=== PATIENT | female | born 1950 | race Caucasian/White ===

== ENCOUNTER 2018-07-16 12:43 | Emergency (ER) | payer OTHER ==
--- OUTSIDE RECORDS SUMMARY | 2018-07-16 12:45 | XMS REPORT | Clinical Summary ---
:1950 Author Organization [facility] Address [address] [place] [address] Care Team Providers Name Role Phone Jerson Blevins MD Primary Care Provider Allergies Active Allergy Reactions Severity Noted Date Comments Codeine Hives 02/07/2017 Penicillins Hives 02/07/2017 Sulfa (Sulfonamide Antibiotics) Hives 02/07/2017 Medications Medication Sig Dispensed Refills Start Date End Date Status mv [id number] fum-iron Take 1 capsule by 0 Active ps-FA (SE-COTTO PLUS) mouth daily. 162-115.2-1 mg capsule levothyroxine Take 50 mcg by 0 Active (SYNTHROID, LEVOXYL) 50 mouth every mcg tablet morning. metoprolol tartrate Take 12.5 mg by 0 Active (LOPRESSOR) 25 mg mouth 2 (two) tablet times a day. Active Problems Problem Noted Date Candidal skin infection 02/10/2017 Morbid obesity 02/10/2017 Iron deficiency anemia 02/10/2017 Cellulitis 02/08/2017 Lymphadenopathy 02/07/2017 Encounters Date Type Specialty Care Team Description 05/15/2018 Intake Access N/A after 07/15/2017 Immunizations Name Dates Previously Given Next Due FLUCELVAX QUAD PF (0.5mL syringe) 02/14/2017 Social History Tobacco Use Types Packs/Day Years Used Date Never Smoker Alcohol Use Drinks/Week oz/Week Comments No Sex Assigned at Date Recorded Not on file Job Start Date Occupation Industry Not on file Not on file Not on file Travel History Travel Start Travel End No recent travel history available. Last Filed Vital Signs Not on file Plan of Treatment Health Maintenance Due Date Last Done Comments BREAST CANCER SCREENING 02/11/1998 COLON CANCER SCREENING 02/11/1998 SHINGLES VACCINES (#1) 02/11/1998 65+ PNEUMOCOCCAL VACCINE (1 of 2 - PCV13) 02/11/2013 PNEUMOCOCCAL POLYSACCHARIDE VACCINE AGE 65 AND OVER 02/11/2013 INFLUENZA VACCINE 11/16/2017 02/14/2017 Results Not on fileafter 07/15/2017 Insurance Payer Benefit Plan / Group Subscriber ID Type Phone Address MEDICARE MEDICARE PART A AND B xxxxxxxxxx Medicare [place], [place] [employer] xxxxxxxx Commercial Advance Directives Patient has advance care planning documents, and code status on file. For more information, please contact:Raman Nixon[address] [place] [id number] Code Status Date Activated Date Inactivated Comments Full Code 02/07/2017 7:14 PM 02/14/2017 7:03 PM Code Status decision reached by: Patient
--- OUTSIDE RECORDS SUMMARY | 2018-07-16 12:45 | XMS REPORT ---
:1950 Author Organization [facility] Address [address] [place] [address] Dr. Lay. [address] [place] [id number] Care Team Providers Name Role Phone Unavailable Unavailable Unavailable Problems This patient has no known problems. Allergies, Adverse Reactions, Alerts This patient has no known allergies or adverse reactions. Medications This patient has no known medications.
[2018-07-16 13:33] LABS: Absolute Monocytes 0.9 K/uL (0.1-1.3); Absolute Neutrophil 5.8 K/uL (1.8-8.0); Basophils % 0.8 % (0-1.3); Eosinophils % 2.7 % (0-4.4); MPV 8.8 fL (7.6-11.3); Monocytes % 10.8 % (3.3-12.3); RBC Red Blood Cell Count 3.73 M/uL (3.86-4.86)
[2018-07-16 13:47] LABS: Albumin 3.5 g/dL (3.4-5.0); Bilirubin Direct 0.3 mg/dL (0-0.2); Potassium 3.9 mmol/L (3.5-5.1); Protein, Total 7.6 g/dL (6.4-8.2)
[2018-07-16 13:49] LABS: Platelet Estimate ADEQ; Urine White Blood Cell Casts OK
[2018-07-16 13:50] LABS: Anisocytosis 1+; Blood Morphology Comment NOTED (NOT SEEN)
--- NOTE | 2018-07-16 15:00 | RAD REPORT ---
EXAM DESCRIPTION: CT - Abdomen Pelvis W Contrast - 07/16/2018 2:16 pm CLINICAL HISTORY: Right-sided abdominal pain COMPARISON: None. TECHNIQUE: Biphasic, helical CT imaging of the abdomen and pelvis was performed following 100 ml non -ionic IV contrast. No oral contrast. All CT scans are performed using dose optimization technique as appropriate and may include automated exposure control or mA/KV adjustment according to patient size. FINDINGS: No suspicious findings in the lung bases. Cardiomegaly is present without pericardial effu kevon. Valve and Coronary artery calcifications present. The liver, spleen, and pancreas show no acute findings. Gallbladder and biliary tree are also without suspicious finding. Symmetric renal function is seen with no hydronephrosis or suspicious renal mass. No pyelonephritis o r acute parenchymal process. No bladder abnormalities. No adrenal abnormalities. Patient has normal v ariant retroaortic left renal vein. No gastric dilatation or wall thickening. No dilated large or small bowel. Moderate stool volume thro ughout the colon. No acute GI process identifiable. No free air, free fluid or inflammatory strandin g. Periumbilical abdominal wall laxity is present. A specific hernia defect is not confirmed. No ome ntal thickening. Small nonspecific periaortic lymph nodes are present. Bilateral iliac chain lymph nodes are present l argest lymph node 3.0 x 1.7 cm. No abnormal inguinal lymphadenopathy. Uterus and ovaries show no susp icious findings. Disc and bony degenerative changes are present. No acute bone finding. Spinal stenosis is evident at L4-5 Mild congestion or edema changes are seen scattered in the subcutaneous fatty tissues. IMPRESSION: No obstruction, free air or surgically emergent finding. Mild congestion and edema in the subcutaneous fatty tissues. Nonspecific bilateral iliac chain lymph nodes largest at 3.0 x 1.7 cm. No bulky lymphadenopathy elsew here. No comparison imaging available. Lymph nodes can be monitored with follow-up imaging in 3-4 mon ths. .
[2018-07-16] MEDS ORDERED: NA CHLORIDE 0.9% 1,000 ML ONE (15:41)
--- NOTE | 2018-07-16 16:54 | EDPHYS ---
Physician Documentation [facility] Name: Josie Sandoval Age: 68 yrs Sex: Female : 1950 Arrival Date: 07/16/2018 Time: 12:44 Bed 8 Private MD: ED Physician Filippo Carroll HPI: 07/16 13:36 This 68 yrs old Unknown Female presents to ER via Wheelchair with complaints of kb Abdominal Pain. 13:36 The patient presents with abdominal pain in the right upper quadrant, right lower kb quadrant. Onset: The symptoms/episode began/occurred 3 day(s) ago. The symptoms do not radiate. Associated signs and symptoms: none. The symptoms are described as waxing/waning. Modifying factors: The symptoms are alleviated by remaining still, the symptoms are aggravated by movement. Severity of pain: At its worst the pain was moderate in the emergency department the pain has improved. The patient has not experienced similar symptoms in the past. The patient has not recently seen a physician. Historical: - Allergies: 12:51 PENICILLINS; la1 12:51 Sulfa (Sulfonamide Antibiotics); la1 12:51 Codeine; la1 - PMHx: 12:51 Hypertension; Hypothyroidism; CHF; la1 - PSHx: 12:51 Hernia repair; Appendectomy; la1 - Immunization history:: Adult Immunizations up to date. - Social history:: Smoking status: Patient/guardian denies using tobacco. - Ebola Screening: : No symptoms or risks identified at this time. ROS: 13:32 Constitutional: Negative for fever, chills, and weight loss, Cardiovascular: Negative kb for chest pain, palpitations, and edema, Respiratory: Negative for shortness of breath, cough, wheezing, and pleuritic chest pain, Back: Negative for injury and pain, : Negative for injury, bleeding, discharge, and swelling, MS/Extremity: Negative for injury and deformity, Skin: Negative for injury, rash, and discoloration, Neuro: Negative for headache, weakness, numbness, tingling, and seizure. 13:32 Abdomen/GI: Positive for abdominal pain, Negative for nausea, vomiting, and diarrhea, constipation. Exam: 13:32 Constitutional: This is a well developed, well nourished patient who is awake, alert, kb and in no acute distress. Head/Face: Normocephalic, atraumatic. Chest/axilla: Normal chest wall appearance and motion. Nontender with no deformity. No lesions are appreciated. Cardiovascular: Regular rate and rhythm with a normal S1 and S2. No gallops, murmurs, or rubs. Normal PMI, no JVD. No pulse deficits. Respiratory: Lungs have equal breath sounds bilaterally, clear to auscultation and percussion. No rales, rhonchi or wheezes noted. No increased work of breathing, no retractions or nasal flaring. Back: No spinal tenderness. No costovertebral tenderness. Full range of motion. Skin: Warm, dry with normal turgor. Normal color with no rashes, no lesions, and no evidence of cellulitis. MS/ Extremity: Pulses equal, no cyanosis. Neurovascular intact. Full, normal range of motion. Neuro: Awake and alert, GCS 15, oriented to person, place, time, and situation. Cranial nerves II-XII grossly intact. Motor strength 5/5 in all extremities. Sensory grossly intact. Cerebellar exam normal. Normal gait. 13:32 Abdomen/GI: Inspection: abdomen appears normal, Bowel sounds: normal, in all quadrants, Palpation: soft, in all quadrants, moderate abdominal tenderness, in the right upper quadrant and right lower quadrant. Vital Signs: 12:51 BP 117 / 66; Pulse 85; Resp 16; Temp 97.1; Pulse Ox 99% on R/A; Weight 129.27 kg; la1 Height 5 ft. 5 in. (165.10 cm); Pain 6/10; 13:35 BP 116 / 55; Pulse 95; Resp 18; Pulse Ox 97% on R/A; hj 14:27 BP 123 / 70; Pulse 90; Resp 18; Pulse Ox 98% on R/A; hj 15:38 BP 107 / 83; Pulse 87; Resp 18; Pulse Ox 96% on R/A; hj 12:51 Body Mass Index 47.43 (129.27 kg, 165.10 cm) la1 MDM: 12:56 Patient medically screened. kb 13:36 Data reviewed: vital signs, nurses notes. Data interpreted: Pulse oximetry: on room air kb is 97 %. Interpretation: normal. 16:53 Counseling: I had a detailed discussion with the patient and/or guardian regarding: the kb historical points, exam findings, and any diagnostic results supporting the discharge/admit diagnosis, lab results, radiology results, the need for outpatient follow up, a family practitioner, to return to the emergency department if symptoms worsen or persist or if there are any questions or concerns that arise at home. 07/16 13:09 Order name: Basic Metabolic Panel kb 07/16 13:09 Order name: CBC with Diff kb 07/16 13:09 Order name: Hepatic Function kb 07/16 13:09 Order name: Lipase kb 07/16 13:09 Order name: Basic Metabolic Panel; Complete Time: 13:48 EDMS 07/16 13:09 Order name: CBC with Automated Diff; Complete Time: 13:52 EDMS 07/16 13:09 Order name: IV Saline Lock; Complete Time: 13:10 kb 07/16 13:09 Order name: Labs collected and sent; Complete Time: 13:10 kb 07/16 13:09 Order name: CT Abd/Pelvis - W/Contrast; Complete Time: 15:07 kb 07/16 13:09 Order name: Liver (Hepatic) Function; Complete Time: 13:48 EDMS 07/16 13:09 Order name: Lipase; Complete Time: 13:48 EDMS 07/16 13:49 Order name: CBC Smear Scan; Complete Time: 13:52 EDMS 07/16 15:22 Order name: US Abdomen Limited; Complete Time: 17:05 kb Administered Medications: 15:28 Drug: NS 0.9% 1000 ml Route: IV; Rate: 1000 ml; Site: left antecubital; hj 17:06 Follow up: IV Status: Completed infusion hj Disposition: 18:48 Co-signature as Attending Physician, Filippo Carroll MD. rn Disposition: 07/16/18 16:54 Discharged to Home. Impression: Generalized abdominal pain. - Condition is Stable. - Discharge Instructions: Abdominal Pain, Adult, [id number]. - Prescriptions for Cyclobenzaprine 10 mg Oral Tablet - take 1 tablet by ORAL route every 8 hours As needed; 21 tablet. Diclofenac Sodium 75 mg Oral Tablet, Delayed Release (E.C.) - take 1 tablet by ORAL route 2 times per day As needed; 30 tablet. - Medication Reconciliation Form, Thank You Letter, Antibiotic Education, Prescription Opioid Use form. - Follow up: Emergency Department; When: As needed; Reason: Worsening of condition. Follow up: Private Physician; When: 2 - 3 days; Reason: Recheck today's complaints, Continuance of care, Re-evaluation by your physician. Signatures: Dispatcher [employer] EDMary Lau, SURGICAL TECHNOLOGIST-C SURGICAL TECHNOLOGIST-Deborah Mckenna, RN RN iw Filippo Carroll MD MD rn Attema, Lee, RN RN la1 Jerry Madison RN RN hj Corrections: (The following items were deleted from the chart) 17:02 16:54 07/16/2018 16:54 Discharged to Home. Impression: Generalized abdominal pain. iw Condition is Stable. Forms are Medication Reconciliation Form, Thank You Letter, Antibiotic Education, Prescription Opioid Use. Follow up: Emergency Department; When: As needed; Reason: Worsening of condition. Follow up: Private Physician; When: 2 - 3 days; Reason: Recheck today's complaints, Continuance of care, Re-evaluation by your physician. kb 17:07 17:02 07/16/2018 16:54 Discharged to Home. Impression: Generalized abdominal pain. hj Condition is Stable. Discharge Instructions: Abdominal Pain, Adult, [id number]. Prescriptions for Cyclobenzaprine 10 mg Oral Tablet - take 1 tablet by ORAL route every 8 hours As needed; 21 tablet, Diclofenac Sodium 75 mg Oral Tablet, Delayed Release (E.C.) - take 1 tablet by ORAL route 2 times per day As needed; 30 tablet. and Forms are Medication Reconciliation Form, Thank You Letter, Antibiotic Education, Prescription Opioid Use. Follow up: Emergency Department; When: As needed; Reason: Worsening of condition. Follow up: Private Physician; When: 2 - 3 days; Reason: Recheck today's complaints, Continuance of care, Re-evaluation by your physician. iw
--- NOTE | 2018-07-16 16:54 | ER ---
Nurse's Notes [facility] Name: Josie Sandoval Age: 68 yrs Sex: Female : 1950 Arrival Date: 07/16/2018 Time: 12:44 Bed 8 Private MD: Diagnosis: Generalized abdominal pain Presentation: 07/16 12:50 Presenting complaint: Patient states: right sided abd pain for the last 2-3 days, la1 denies N/V/D, no fevers or visible blood in stool. Transition of care: patient was not received from another setting of care. Onset of symptoms was July 16, 2018. Risk Assessment: Do you want to hurt yourself or someone else? Patient reports no desire to harm self or others. Initial Sepsis Screen: Does the patient meet any 2 criteria? No. Patient's initial sepsis screen is negative. Does the patient have a suspected source of infection? No. Patient's initial sepsis screen is negative. Care prior to arrival: None. 12:50 Method Of Arrival: Wheelchair la1 12:50 Acuity: MIK 3 la1 Triage Assessment: 12:55 General: Appears in no apparent distress. uncomfortable, Behavior is calm, cooperative, hj appropriate for age. Pain: Complains of pain in abdomen. GI: Reports lower abdominal pain, upper abdominal pain. Historical: - Allergies: 12:51 PENICILLINS; la1 12:51 Sulfa (Sulfonamide Antibiotics); la1 12:51 Codeine; la1 - PMHx: 12:51 Hypertension; Hypothyroidism; CHF; la1 - PSHx: 12:51 Hernia repair; Appendectomy; la1 - Immunization history:: Adult Immunizations up to date. - Social history:: Smoking status: Patient/guardian denies using tobacco. - Ebola Screening: : No symptoms or risks identified at this time. Screenin:55 Abuse screen: Denies threats or abuse. Denies injuries from another. Nutritional hj screening: No deficits noted. Tuberculosis screening: No symptoms or risk factors identified. Fall Risk Fall in past 12 months (25 points). Assessment: 12:56 GI: Bowel sounds present X 4 quads. Abd is soft. hj 12:56 General: Appears in no apparent distress. uncomfortable, obese, Behavior is calm, hj cooperative, appropriate for age. Pain: Complains of pain in abdomen. Neuro: Level of Consciousness is awake, alert, obeys commands, Oriented to person, place, time, situation, Appropriate for age. Cardiovascular: Capillary refill < 3 seconds Patient's skin is warm and dry. Respiratory: Airway is patent Respiratory effort is even, unlabored, Respiratory pattern is regular, symmetrical. : No signs and/or symptoms were reported regarding the genitourinary system. EENT: No signs and/or symptoms were reported regarding the EENT system. Derm: No signs and/or symptoms reported regarding the dermatologic system. Musculoskeletal: No signs and/or symptoms reported regarding the musculoskeletal system. 14:00 Reassessment: Patient and/or family updated on plan of care and expected duration. Pain hj level reassessed. Patient is alert, oriented x 3, equal unlabored respirations, skin warm/dry/pink. wheeled to CT;. 14:27 Reassessment: Patient and/or family updated on plan of care and expected duration. Pain hj level reassessed. Patient is alert, oriented x 3, equal unlabored respirations, skin warm/dry/pink. back from CT;. 15:38 Reassessment: Patient and/or family updated on plan of care and expected duration. Pain hj level reassessed. Patient is alert, oriented x 3, equal unlabored respirations, skin warm/dry/pink. awaiting US of abd;. 16:00 Reassessment: US abdomen ongoing;. hj Vital Signs: 12:51 BP 117 / 66; Pulse 85; Resp 16; Temp 97.1; Pulse Ox 99% on R/A; Weight 129.27 kg; la1 Height 5 ft. 5 in. (165.10 cm); Pain 6/10; 13:35 BP 116 / 55; Pulse 95; Resp 18; Pulse Ox 97% on R/A; hj 14:27 BP 123 / 70; Pulse 90; Resp 18; Pulse Ox 98% on R/A; hj 15:38 BP 107 / 83; Pulse 87; Resp 18; Pulse Ox 96% on R/A; hj 12:51 Body Mass Index 47.43 (129.27 kg, 165.10 cm) la1 ED Course: 12:44 Patient arrived in ED. mr 12:50 Triage completed. la1 12:52 Arm band placed on left wrist. la1 12:54 Jerry Madison, RN is Primary Nurse. hj 12:56 Mary Rodas FNP-C [facility]. kb 12:56 Filippo Carroll MD is Attending Physician. kb 12:56 Patient has correct armband on for positive identification. Placed in gown. Bed in low hj position. Call light in reach. Side rails up X 1. Adult w/ patient. 13:10 Initial lab(s) drawn, by me, sent to lab. Inserted saline lock: 22 gauge in right hj antecubital area, using aseptic technique. Blood collected. 13:23 Radiology exam delayed due to lab results not completed at this time. (BUN/Creatinine). mw3 14:16 CT Abd/Pelvis - W/Contrast In Process Unspecified. EDMS 16:32 Ultrasound completed. Other: diff exam,pt unable to move/hold breath. sg3 16:36 US Abdomen Limited In Process Unspecified. EDMS 17:03 No provider procedures requiring assistance completed. IV discontinued, intact, hj bleeding controlled, No redness/swelling at site. Pressure dressing applied. 17:04 Primary Nurse role handed off by Jerry Madison RN iw 17:06 Jerry Madison, RN is Primary Nurse. hj Administered Medications: 15:28 Drug: NS 0.9% 1000 ml Route: IV; Rate: 1000 ml; Site: left antecubital; hj 17:06 Follow up: IV Status: Completed infusion hj Outcome: 16:54 Discharge ordered by . kb 17:02 Patient left the ED. iw 17:03 Discharged to home ambulatory, with family. hj 17:03 Condition: stable 17:03 Discharge instructions given to patient, family, Instructed on discharge instructions, follow up and referral plans. medication usage, Demonstrated understanding of instructions, follow-up care, medications, Prescriptions given X 2. 17:07 Patient left the ED. hj Signatures: Dispatcher [employer] EDMS Mary Rodas FNP-C FNP-Josie Kan Irene, RN RN Rd Jansen RN RN la1 Jerry Madison RN RN hj Godinez, Sarah sg3 Ivette Farooq mw3
--- NOTE | 2018-07-16 17:00 | RAD REPORT ---
EXAM DESCRIPTION: US - Abdomen Exam Limited - 07/16/2018 4:35 pm CLINICAL HISTORY: Abdominal pain Exam limited due to body habitus and limited patient ability to breath hold COMPARISON: None. FINDINGS: No gallstones, sludge or other abnormalities within the gallbladder lumen. There is no wal l thickening or pericholecystic fluid. No common duct stone or biliary tree dilatation identified. IMPRESSION: Normal gallbladder and biliary tree ultrasound.
== END 2018-07-16 17:07 | disposition home or self-care (01) ==
LOC: ER 12:43
DX: R10.11 Right upper quadrant pain (principal); I10 Essential (primary) hypertension; E03.9 Hypothyroidism, unspecified; I50.9 Heart failure, unspecified; Z88.5 Allergy status to narcotic agent; Z88.0 Allergy status to penicillin; Z88.2 Allergy status to sulfonamides
CPT/HCPCS: 96361; 85025; 80048; 36415; 80076; 83690; 74177; 76705; 96360; 99284; Q9967; J7030

== ENCOUNTER 2018-11-28 23:39 | Emergency (ER) | payer OTHER ==
--- OUTSIDE RECORDS SUMMARY | 2018-11-28 23:41 | XMS REPORT ---
:1950 Author Organization [facility] Address [address] [place] [address] Dr. Lay. [address] [place] [id number] Care Team Providers Name Role Phone Unavailable Unavailable Unavailable Problems This patient has no known problems. Allergies, Adverse Reactions, Alerts This patient has no known allergies or adverse reactions. Medications This patient has no known medications.
--- OUTSIDE RECORDS SUMMARY | 2018-11-28 23:41 | XMS REPORT | Clinical Summary ---
:1950 Author Organization [facility] Address [address] [place] [address] Care Team Providers Name Role Phone Jerson Blevins MD Primary Care Provider Allergies Active Allergy Reactions Severity Noted Date Comments Codeine Hives 02/07/2017 Penicillins Hives 02/07/2017 Sulfa (Sulfonamide Antibiotics) Hives 02/07/2017 Medications Medication Sig Dispensed Refills Start Date End Date Status mv [id number] fum-iron Take 1 capsule by 0 Active [...] Team Description 05/15/2018 Intake Access N/A after 11/27/2017 Immunizations Name Dates Previously Given Next Due [...] Last Done Comments BREAST CANCER SCREENING 02/11/1998 COLONOSCOPY SCREENING 02/11/1998 SHINGLES VACCINES (#1) 02/11/1998 65+ PNEUMOCOCCAL VACCINE (1 of 2 - PCV13) 02/11/2013 INFLUENZA VACCINE 11/16/2018 02/14/2017 Results Not on fileafter 11/27/2017 Insurance Payer Benefit Plan / Subscriber ID Effective Phone Address Type Group Dates MEDICARE MEDICARE PART xxxxxxxxxx 2013-Pres [place], [place] Medicare A AND B ent [employer] xxxxxxxx 2014-Pre[place] [employer] [place] Advance Directives Patient has advance care planning documents, and code status on file. For more information, please contact:Raman Nixon[address] [place] [id number] Code Status Date Activated Date Inactivated Comments Full Code 02/07/2017 7:14 PM 02/14/2017 7:03 PM Code Status decision reached by: Patient
--- NOTE | 2018-11-29 00:41 | ER ---
Nurse's Notes [facility] Name: Josie Sandoval Age: 68 yrs Sex: Female : 1950 Arrival Date: 11/28/2018 Time: 23:43 Bed 2 Private MD: Diagnosis: Dorsalgia;Postherpetic polyneuropathy Presentation: 11/28 23:58 Presenting complaint: Patient states: she had shingles about 3 months ago was treated bb and recovered but has nerve damage to that area causing her a lot of pain to the left side of her back. She is taking gabapentin, and using a lidocaine patch but the pain is getting worse it is greater than 10/10. Transition of care: patient was not received from another setting of care. Onset of symptoms was August 2018. Risk Assessment: Do you want to hurt yourself or someone else? Patient reports no desire to harm self or others. Initial Sepsis Screen: Does the patient meet any 2 criteria? No. Patient's initial sepsis screen is negative. Does the patient have a suspected source of infection? No. Patient's initial sepsis screen is negative. 23:58 Method Of Arrival: Wheelchair 23:58 Acuity: MIK 4 bb 11/29 01:00 Care prior to arrival: None. ao Historical: - Allergies: 00:02 Codeine; bb 00:02 PENICILLINS; bb 00:02 Sulfa (Sulfonamide Antibiotics); bb - Home Meds: 00:02 gabapentin oral oral [Active]; lidocaine patch [Active]; carvedilol oral oral [Active]; bb thyroid medication [Active]; Lasix Oral [Active]; - PMHx: 00:02 CHF; Hypertension; Hypothyroidism; bb - PSHx: 00:02 Hernia repair; Appendectomy; left shoulder; bb - Immunization history:: Adult Immunizations up to date. - Social history:: Smoking status: Patient/guardian denies using tobacco. - Ebola Screening: : No symptoms or risks identified at this time. Screenin:12 Abuse screen: Denies threats or abuse. Denies injuries from another. Nutritional rr5 screening: No deficits noted. Tuberculosis screening: No symptoms or risk factors identified. Fall Risk Ambulatory Aid- Crutches/Cane/Walker (15 pts). Gait- Normal/Bed Rest/Wheelchair (0 pts) Total Carlton Fall Scale indicates No Risk (0-24 pts). Assessment: 00:05 General: Appears in no apparent distress. uncomfortable, Behavior is calm, cooperative, rr5 appropriate for age. Pain: Complains of pain in back Pain does not radiate. Pain currently is 10 out of 10 on a pain scale. Quality of pain is described as aching, Pain began gradually, Is intermittent. Neuro: Level of Consciousness is awake, alert, obeys commands, Oriented to person, place, time, situation, Appropriate for age. Cardiovascular: Capillary refill < 3 seconds Patient's skin is warm and dry. Respiratory: Airway is patent Respiratory effort is even, unlabored, Respiratory pattern is regular, symmetrical. GI: No signs and/or symptoms were reported involving the gastrointestinal system. : No signs and/or symptoms were reported regarding the genitourinary system. EENT: No signs and/or symptoms were reported regarding the EENT system. Derm: Skin is intact, Skin is pink, warm \T\ dry. Skin temperature is warm Reports pain that is 10 out of 10 on a pain scale. pain from the site of shingle infection at the back 3 months ago. Musculoskeletal: Circulation, motion, and sensation intact. Capillary refill < 3 seconds. 01:00 Reassessment: DC instructions given to patient and caregiver. patient agree with the ao POC and to follow up with PCP. Vital Signs: 00:02 BP 120 / 77; Pulse 107; Resp 18 S; Temp 97.4(TE); Pulse Ox 94% on R/A; Weight 135.62 kg bb (R); Height 5 ft. 5 in. (165.10 cm) (R); Pain 10/10; 00:02 Body Mass Index 49.76 (135.62 kg, 165.10 cm) bb ED Course: 11/28 23:43 Patient arrived in ED. ds1 11/29 00:00 Triage completed. bb 00:00 Filiberto Mustafa MD is Attending Physician. gs 00:02 Arm band placed on Patient placed on pulse oximetry. bb 00:12 Sin Allen RN is Primary Nurse. rr5 00:37 Sami Wilkes DO is Referral Physician. gs 01:00 No provider procedures requiring assistance completed. Patient did not have IV access ao during this emergency room visit. 01:01 Patient has correct armband on for positive identification. Pulse ox on. NIBP on. ao Administered Medications: 00:49 Drug: traMADol 50 mg {Note: Rass 0.} Route: PO; ao 01:01 Follow up: Response: No adverse reaction ao Outcome: 00:38 Discharge ordered by . ashutosh 01:01 Discharged to home via wheelchair. ao 01:01 Condition: stable 01:01 Discharge instructions given to patient, Instructed on discharge instructions, follow up and referral plans. Demonstrated understanding of instructions, follow-up care, medications, Prescriptions given X 1. 01:01 Patient left the ED. ao Signatures: Makenna Mcdermott ds1 Meredith Hubbard RN RN bb Brooks Gardner RN RN Filiberto Donnelly MD MD gs Roque, Raymond RN RN rr5
--- NOTE | 2018-11-29 00:42 | EDPHYS ---
Physician Documentation [facility] Name: Josie Sandoval Age: 68 yrs Sex: Female : 1950 Arrival Date: 11/28/2018 Time: 23:43 Bed 2 Private MD: ED Physician Filiberto Mustafa HPI: 11/29 00:45 This 68 yrs old Female presents to ER via Wheelchair with complaints of Back gs Pain. 00:45 The patient presents with pain that is chronic. The symptoms are located in the. gs 00:49 Onset: The symptoms/episode began/occurred gradually, 5 week(s) ago. The pain does not gs radiate. Associated signs and symptoms: Pertinent negatives: chest pain, dysuria, fever. The problem was sustained post herpetic neuralgia. Modifying factors: The patient symptoms are alleviated by nothing, the patient symptoms are aggravated by movement. Severity of symptoms: At their worst the symptoms were moderate, in the emergency department the symptoms are unchanged. The patient has experienced similar episodes in the past, a few times. The patient has been recently seen by a physician: the patient's primary care provider, with similar presenting complaints, has been on gabapentin and lidocaine patches with variable relief. . Historical: - Allergies: 00:02 Codeine; bb 00:02 PENICILLINS; bb 00:02 Sulfa (Sulfonamide Antibiotics); bb - Home Meds: 00:02 gabapentin oral oral [Active]; lidocaine patch [Active]; carvedilol oral oral [Active]; bb thyroid medication [Active]; Lasix Oral [Active]; - PMHx: 00:02 CHF; Hypertension; Hypothyroidism; bb - PSHx: 00:02 Hernia repair; Appendectomy; left shoulder; bb - Immunization history:: Adult Immunizations up to date. - Social history:: Smoking status: Patient/guardian denies using tobacco. - Ebola Screening: : No symptoms or risks identified at this time. ROS: 00:49 All other systems are negative. gs Exam: 00:49 Head/Face: Normocephalic, atraumatic. Eyes: Pupils equal round and reactive to light, gs extra-ocular motions intact. Lids and lashes normal. Conjunctiva and sclera are non-icteric and not injected. Cornea within normal limits. Periorbital areas with no swelling, redness, or edema. ENT: Nares patent. No nasal discharge, no septal abnormalities noted. Tympanic membranes are normal and external auditory canals are clear. Oropharynx with no redness, swelling, or masses, exudates, or evidence of obstruction, uvula midline. Mucous membranes moist. Neck: Trachea midline, no thyromegaly or masses palpated, and no cervical lymphadenopathy. Supple, full range of motion without nuchal rigidity, or vertebral point tenderness. No Meningismus. Cardiovascular: Regular rate and rhythm with a normal S1 and S2. No gallops, murmurs, or rubs. Normal PMI, no JVD. No pulse deficits. Respiratory: Lungs have equal breath sounds bilaterally, clear to auscultation and percussion. No rales, rhonchi or wheezes noted. No increased work of breathing, no retractions or nasal flaring. Abdomen/GI: Soft, non-tender, with normal bowel sounds. No distension or tympany. No guarding or rebound. No evidence of tenderness throughout. Back: No spinal tenderness. No costovertebral tenderness. Full range of motion. Skin: Warm, dry with normal turgor. Normal color with no rashes, no lesions, and no evidence of cellulitis. MS/ Extremity: Pulses equal, no cyanosis. Neurovascular intact. Full, normal range of motion. Neuro: Awake and alert, GCS 15, oriented to person, place, time, and situation. Cranial nerves II-XII grossly intact. Motor strength 5/5 in all extremities. Sensory grossly intact. Cerebellar exam normal. Normal gait. 00:49 Constitutional: The patient appears alert, awake. 00:49 Chest/axilla: Palpation: tenderness, that is mild, of the left lateral posterior chest. 00:49 Back: pain, that is mild, of the left scapular area, pt appears comfortable in no distress, i recommended that she see pain management for evolving chronic pain.. Vital Signs: 00:02 BP 120 / 77; Pulse 107; Resp 18 S; Temp 97.4(TE); Pulse Ox 94% on R/A; Weight 135.62 kg bb (R); Height 5 ft. 5 in. (165.10 cm) (R); Pain 10; 00:02 Body Mass Index 49.76 (135.62 kg, 165.10 cm) bb MDM: 00:31 Patient medically screened. gs 00:49 Differential diagnosis: chronic back pain, sprain, post herpetic neuralgia. Data reviewed: vital signs, nurses notes. Administered Medications: 00:49 Drug: traMADol 50 mg {Note: Rass 0.} Route: PO; ao 01:01 Follow up: Response: No adverse reaction ao Disposition: 11/29/18 00:38 Discharged to Home. Impression: Dorsalgia, Postherpetic polyneuropathy. - Condition is Stable. - Discharge Instructions: Back Pain, Adult. - Prescriptions for Prednisone 20 mg Oral Tablet - take 1 tablet by ORAL route once daily for 5 days; 5 tablet. Tramadol 50 mg Oral Tablet - take 1 tablet by ORAL route every 8 hours as needed; 12 tablet. - Medication Reconciliation Form, Thank You Letter, Antibiotic Education, Prescription Opioid Use form. - Follow up: Sami Wilkes DO; When: 2 - 3 days; Reason: Re-evaluation by your physician. Signatures: Meredith Hubbard RN RN bb Ortiz, Alex, RN RN ao Starr, Gregory, MD MD Corrections: (The following items were deleted from the chart) 01:01 00:38 11/29/2018 00:38 Discharged to Home. Impression: Dorsalgia; Postherpetic ao polyneuropathy. Condition is Stable. Forms are Medication Reconciliation Form, Thank You Letter, Antibiotic Education, Prescription Opioid Use. Follow up: Sami Wilkes; When: 2 - 3 days; Reason: Re-evaluation by your physician.
[2018-11-29] MEDS ORDERED: TRAMADOL HCL 50 MG TAB ONE (00:44)
== END 2018-11-29 01:01 | disposition home or self-care (01) ==
LOC: ER 23:39
DX: B02.23 Postherpetic polyneuropathy (principal); I10 Essential (primary) hypertension; I50.9 Heart failure, unspecified; E03.9 Hypothyroidism, unspecified; Z88.0 Allergy status to penicillin; Z88.2 Allergy status to sulfonamides; Z88.5 Allergy status to narcotic agent
CPT/HCPCS: 99283

== ENCOUNTER 2019-03-23 11:21 | Emergency (ER) | payer OTHER ==
--- OUTSIDE RECORDS SUMMARY | 2019-03-23 11:28 | XMS REPORT ---
:1950 [facility] [address] [place] [id number] Care Team Providers Name Role Phone Unavailable Unavailable Unavailable Problems This patient has no known problems. Allergies, Adverse Reactions, Alerts This patient has no known allergies or adverse reactions. Medications This patient has no known medications.
[2019-03-23 12:22] LABS: Absolute Lymphocytes (CBC) 0.6 K/uL (0.7-4.9); Basophils % 0.7 % (0-1.3); Hematocrit 35.7 % (36.0-45.0); Lymphocytes % 8.3 % (15.3-44.8); RBC Red Blood Cell Count 4.23 M/uL (3.86-4.86)
[2019-03-23 12:32] LABS: Albumin 2.7 g/dL (3.4-5.0); Bilirubin Direct 0.2 mg/dL (0-0.2); Bilirubin Total 0.5 mg/dL (0.2-1.0); Potassium 4.1 mmol/L (3.5-5.1); Protein, Total 6.3 g/dL (6.4-8.2)
[2019-03-23] MEDS ORDERED: PHENAZOPYRIDINE 100MG TAB PO ONE (12:32)
[2019-03-23] MEDS ORDERED: ONDANSETRON 4 MG/2 ML VIAL ONE (12:32)
[2019-03-23 12:52] LABS: Urine Blood 2+ (NEG); Urine Glucose NEGATIVE (NEG); Urine Protein 1+ (NEG); Urine Specific Gravity 1.025 (1.005-1.030); Urine pH 5.5 (5.0-7.0)
--- NOTE | 2019-03-23 13:31 | RAD REPORT ---
EXAM DESCRIPTION: CTAbdomen Pelvis W Contrast - 03/23/2019 1:13 pm CLINICAL HISTORY: Abdominal pain. ABD PAIN COMPARISON: Abdomen Pelvis W Contrast dated 07/16/2018 TECHNIQUE: Biphasic CT imaging of the abdomen and pelvis was performed with 100 ml non-ionic IV cont rast. All CT scans are performed using dose optimization technique as appropriate and may include automated exposure control or mA/KV adjustment according to patient size. FINDINGS: Mild linear subsegmental atelectasis is present in the left lung base. Mild diffuse fatty liver is present. The spleen is normal in size. The pancreas, adrenal glands and k idneys are within normal limits. No bowel obstruction, free air, free fluid or abscess. Edema is present in the soft tissues suggestin g mild anasarca. The appendix is not identified as a discrete structure, however, no secondary findin gs of appendicitis are identified. No evidence of significant lymphadenopathy. Prominent degenerative changes are noted in the lumbar spine. IMPRESSION: No acute intra-abdominal or pelvic finding.
--- NOTE | 2019-03-23 15:07 | ER ---
Nurse's Notes [facility] Name: Josie Sandoval Age: 69 yrs Sex: Female : 1950 Arrival Date: 03/23/2019 Time: 11:27 Bed 6 Private MD: Diagnosis: Dysuria;Abdominal and pelvic pain Presentation: 03/23 11:28 Presenting complaint: EMS states: pt c/o trouble urinating for 3 days. Pt has just ca1 finish a course of antibiotics and has new antibiotics Levofloxacin which she started 2 days ago. Pt c/o nausea and bladder pain. Pt also has cellulitis on both lower extremities. Transition of care: patient was not received from another setting of care. Onset of symptoms was March 21, 2019. Risk Assessment: Do you want to hurt yourself or someone else? Patient reports no desire to harm self or others. Initial Sepsis Screen: Does the patient meet any 2 criteria? No. Patient's initial sepsis screen is negative. Does the patient have a suspected source of infection? No. Patient's initial sepsis screen is negative. Care prior to arrival: IV initiated. 20 GA, in the right antecubital area, Glucose check: 136. 11:28 Method Of Arrival: EMS: [facility] ca1 11:28 Acuity: MIK 3 ca1 Historical: - Allergies: 11:32 Codeine; ca1 11:32 PENICILLINS; ca1 11:32 Sulfa (Sulfonamide Antibiotics); ca1 - Home Meds: 11:32 THYROID MEDICATION [Active]; ca1 - PMHx: 11:32 CHF; Hypertension; Hypothyroidism; ca1 - PSHx: 11:32 Hernia repair; Appendectomy; ca1 - Immunization history:: Adult Immunizations up to date, Pneumococcal vaccine is not up to date, Flu vaccine is not up to date. - Social history:: Smoking status: Patient/guardian denies using tobacco. - Ebola Screening: : Patient negative for fever greater than or equal to 101.5 degrees Fahrenheit, and additional compatible Ebola Virus Disease symptoms Patient denies exposure to infectious person Patient denies travel to an Ebola-affected area in the 21 days before illness onset No symptoms or risks identified at this time. Screenin:30 Abuse screen: Denies threats or abuse. Nutritional screening: No deficits noted. aa5 Tuberculosis screening: No symptoms or risk factors identified. Fall Risk IV access (20 points). Ambulatory Aid- Crutches/Cane/Walker (15 pts). Total Carlton Fall Scale indicates Low Risk Score (25-44 pts). Fall prevention measures have been instituted. Side Rails Up X 2 Placed close to Nursing Station. Assessment: 11:30 General: Appears comfortable, unkempt, Behavior is calm, cooperative. Pain: Complains aa5 of pain in suprapubic area, pt states "bladder" Pain does not radiate. Pain currently is 4 out of 10 on a pain scale. Quality of pain is described as aching, Pt states "the pain is aching right now but every once in a while I'll get a sharp pain" Pain began 2-3 days ago. Is continuous. Neuro: Level of Consciousness is awake, alert, obeys commands, Oriented to person, place, time, situation. Cardiovascular: Patient's skin is warm and dry. Lymphedema noted to praveen lower extremities . Respiratory: Airway is patent Respiratory effort is even, unlabored, Respiratory pattern is regular, symmetrical. GI: Abdomen is obese, Bowel sounds present X 4 quads. Abd is soft and non tender X 4 quads. Reports nausea, vomiting, x 2-3 days ago. : Reports pain with urination, reports decreased urination x 2-3 days ago. EENT: No signs and/or symptoms were reported regarding the EENT system. Derm: Skin is pink, warm \\T\\ dry. Rash noted that is on right arm and left arm and praveen lower extremities. Pt states "I have cellulitis". 12:40 Reassessment: Patient is alert, oriented x 3, equal unlabored respirations, skin aa5 warm/dry/pink. 13:30 Reassessment: Patient is alert, oriented x 3, equal unlabored respirations, skin aa5 warm/dry/pink. Patient states feeling better. 14:30 Reassessment: Patient is alert, oriented x 3, equal unlabored respirations, skin aa5 warm/dry/pink. Awaiting disposition. 16:45 Reassessment: Patient is alert, oriented x 3, equal unlabored respirations, skin aa5 warm/dry/pink. Awaiting EMS for transfer home. . Vital Signs: 11:32 BP 152 / 109; Pulse 110; Resp 14 S; Temp 97.4(TE); Pulse Ox 100% on R/A; Weight 136.08 ca1 kg (R); Height 5 ft. 5 in. (165.10 cm) (R); Pain 7/10; 12:30 BP 148 / 90; Pulse 105; Resp 18 S; Pulse Ox 100% on R/A; aa5 14:00 BP 142 / 92; Pulse 100; Resp 18 S; Temp 97.8(TE); Pulse Ox 99% on R/A; aa5 16:45 BP 150 / 90; Pulse 99; Resp 16 S; Pulse Ox 100% on R/A; aa5 11:32 Body Mass Index 49.92 (136.08 kg, 165.10 cm) ca1 ED Course: 11:27 Patient arrived in ED. ca1 11:32 Triage completed. ca1 11:32 Arm band placed on right wrist. ca1 11:32 Patient has correct armband on for positive identification. Bed in low position. Call aa5 light in reach. Side rails up X2. 11:34 Wanda Castro, DIVYA is Primary Nurse. aa5 11:58 Leonidas Bocanegra MD is Attending Physician. kdr 12:39 Regan cath inserted, using sterile technique, 18 Fr., by ar, balloon inflated, to aa5 gravity drainage, urine specimen collected. returned 100cc. Patient tolerated poorly. 13:14 CT Abd/Pelvis - IV Contrast Only In Process Unspecified. EDMS 16:45 Regan cath removed intact, balloon deflated. aa5 16:45 No provider procedures requiring assistance completed. IV discontinued, intact, aa5 bleeding controlled, No redness/swelling at site. Pressure dressing applied. Administered Medications: 12:34 Drug: Zofran 4 mg Route: IVP; Site: right antecubital; aa5 12:40 Follow up: Response: No adverse reaction aa5 12:34 Drug: Pyridium 200 mg Route: PO; aa5 13:35 Follow up: Response: No adverse reaction aa5 Output: 16:45 Urine: 250ml (Regan); Total: 250ml. aa5 Outcome: 15:07 Discharge ordered by . kdr 17:05 Discharged to home via ambulance. aa5 17:05 Condition: stable 17:05 Discharge instructions given to patient, Instructed on discharge instructions, follow up and referral plans. medication usage, Demonstrated understanding of instructions, follow-up care, medications, Prescriptions given X 3. 17:07 Patient left the ED. aa5 Addendum: 03/27/2019 16:58 Addendum: Culture Results: Positive urine culture. Phone call Attempt #1 No answer, no h b voicemail. Signatures: Dispatcher [employer] EDLeonidas Hurst MD MD kdr Calderon, Audri RN RN aa5 Nika Rai RN RN Cindy Park RN RN ca1 Corrections: (The following items were deleted from the chart) 03/23 18:39 17:11 Patient left the ED. aa5 aa5
--- NOTE | 2019-03-23 15:08 | EDPHYS ---
Physician Documentation [facility] Name: Josie Sandoval Age: 69 yrs Sex: Female : 1950 Arrival Date: 03/23/2019 Time: 11:27 Bed 6 Private MD: ED Physician Leonidas Bocanegra HPI: 03/23 15:09 This 69 yrs old Female presents to ER via EMS with complaints of pain and kdr difficulty urinating. 15:09 The patient presents with urinary symptoms, dysuria, hesitancy, urinary retention. kdr Onset: The symptoms/episode began/occurred gradually, 3 day(s) ago. Modifying factors: The symptoms are alleviated by nothing, the symptoms are aggravated by urinating. Associated signs and symptoms: The patient has no apparent associated signs or symptoms. Severity of symptoms: At their worst the symptoms were mild, in the emergency department the symptoms are unchanged. The patient has not recently seen a physician. Historical: - Allergies: 11:32 Codeine; ca1 11:32 PENICILLINS; ca1 11:32 Sulfa (Sulfonamide Antibiotics); ca1 - Home Meds: 11:32 THYROID MEDICATION [Active]; ca1 - PMHx: 11:32 CHF; Hypertension; Hypothyroidism; ca1 - PSHx: 11:32 Hernia repair; Appendectomy; ca1 - Immunization history:: Adult Immunizations up to date, Pneumococcal vaccine is not up to date, Flu vaccine is not up to date. - Social history:: Smoking status: Patient/guardian denies using tobacco. - Ebola Screening: : Patient negative for fever greater than or equal to 101.5 degrees Fahrenheit, and additional compatible Ebola Virus Disease symptoms Patient denies exposure to infectious person Patient denies travel to an Ebola-affected area in the 21 days before illness onset No symptoms or risks identified at this time. ROS: 15:09 Positive for urinary symptoms, Negative for foul smelling urine, vaginal bleeding, kdr vaginal discharge, vaginal itching, menstrual abnormality. 15:09 Constitutional: Negative for fever, chills, and weight loss, Eyes: Negative for injury, pain, redness, and discharge, ENT: Negative for injury, pain, and discharge, Neck: Negative for injury, pain, and swelling, Cardiovascular: Negative for chest pain, palpitations, and edema, Respiratory: Negative for shortness of breath, cough, wheezing, and pleuritic chest pain, Back: Negative for injury and pain, MS/Extremity: Negative for injury and deformity, Skin: Negative for injury, rash, and discoloration, Neuro: Negative for headache, weakness, numbness, tingling, and seizure activity. Psych: Negative for depression, anxiety, suicide ideation, homicidal ideation, and hallucinations, Allergy/Immunology: Negative for hives, rash, and allergies, Endocrine: Negative for neck swelling, polydipsia, polyuria, polyphagia, and marked weight changes, Hematologic/Lymphatic: Negative for swollen nodes, abnormal bleeding, and unusual bruising. 15:09 Abdomen/GI: Positive for abdominal pain, Negative for diarrhea, constipation, abdominal cramps, abdominal distension, black/tarry stool, rectal pain, rectal bleeding. Exam: 15:09 Constitutional: This is a well developed, well nourished obese patient who is awake, kdr alert, and in no acute distress. Head/Face: Normocephalic, atraumatic. Eyes: Pupils equal round and reactive to light, extra-ocular motions intact. Lids and lashes normal. Conjunctiva and sclera are non-icteric and not injected. Cornea within normal limits. Periorbital areas with no swelling, redness, or edema. Neck: Trachea midline, no thyromegaly or masses palpated, and no cervical lymphadenopathy. Supple, full range of motion without nuchal rigidity, or vertebral point tenderness. No Meningismus. Chest/axilla: Normal chest wall appearance and motion. Nontender with no deformity. No lesions are appreciated. Cardiovascular: Regular rate and rhythm with a normal S1 and S2. No gallops, murmurs, or rubs. Normal PMI, no JVD. No pulse deficits. Respiratory: Lungs have equal breath sounds bilaterally, clear to auscultation and percussion. No rales, rhonchi or wheezes noted. No increased work of breathing, no retractions or nasal flaring. Abdomen/GI: Soft, obese but non-tender, with normal bowel sounds. No distension or tympany. No guarding or rebound. Little or no evidence of tenderness throughout. Back: No spinal tenderness. No costovertebral tenderness. Full range of motion. Skin: Warm, dry with normal turgor. Normal color with no rashes, no lesions, and no evidence of cellulitis. MS/ Extremity: Pulses equal, no cyanosis. Neurovascular intact. Full, normal range of motion. Significant chronic venous statsis disease Neuro: Awake and alert, GCS 15, oriented to person, place, time, and situation. Cranial nerves II-XII grossly intact. Motor strength 5/5 in all extremities. Sensory grossly intact. Cerebellar exam normal. Normal gait. Psych: Awake, alert, with orientation to person, place and time. Behavior, mood, and affect are within normal limits. Vital Signs: 11:32 BP 152 / 109; Pulse 110; Resp 14 S; Temp 97.4(TE); Pulse Ox 100% on R/A; Weight 136.08 ca1 kg (R); Height 5 ft. 5 in. (165.10 cm) (R); Pain 7/10; 12:30 BP 148 / 90; Pulse 105; Resp 18 S; Pulse Ox 100% on R/A; aa5 14:00 BP 142 / 92; Pulse 100; Resp 18 S; Temp 97.8(TE); Pulse Ox 99% on R/A; aa5 16:45 BP 150 / 90; Pulse 99; Resp 16 S; Pulse Ox 100% on R/A; aa5 11:32 Body Mass Index 49.92 (136.08 kg, 165.10 cm) ca1 MDM: 15:07 Patient medically screened. kdr 15:09 Data reviewed: vital signs, nurses notes, lab test result(s), radiologic studies. kdr Counseling: I had a detailed discussion with the patient and/or guardian regarding: the historical points, exam findings, and any diagnostic results supporting the discharge/admit diagnosis, lab results, radiology results, the need for outpatient follow up. 03/23 11:59 Order name: Basic Metabolic Panel; Complete Time: 12:38 kdr 03/23 11:59 Order name: CBC with Diff; Complete Time: 12:38 kdr 03/23 11:59 Order name: Creatinine for Radiology; Complete Time: 12:38 kdr 03/23 11:59 Order name: Hepatic Function; Complete Time: 12:38 kdr 03/23 11:59 Order name: Lipase; Complete Time: 12:38 kdr 03/23 12:38 Order name: Urine Dipstick--Ancillary (enter results); Complete Time: 13:12 eb 03/23 11:59 Order name: IV Saline Lock; Complete Time: 12:26 kdr 03/23 11:59 Order name: Labs collected and sent; Complete Time: 12:26 kdr 03/23 12:37 Order name: CT Abd/Pelvis - IV Contrast Only; Complete Time: 13:37 kdr 03/23 12:38 Order name: Regan; Complete Time: 12:39 aa5 03/23 12:38 Order name: Urine Dipstick-Ancillary (obtain specimen); Complete Time: 12:39 aa5 03/23 16:28 Order name: Urine Culture aa5 Administered Medications: 12:34 Drug: Zofran 4 mg Route: IVP; Site: right antecubital; aa5 12:40 Follow up: Response: No adverse reaction aa5 12:34 Drug: Pyridium 200 mg Route: PO; aa5 13:35 Follow up: Response: No adverse reaction aa5 Disposition: 03/23/19 15:07 Discharged to Home. Impression: Dysuria, Abdominal and pelvic pain. - Condition is Stable. - Discharge Instructions: Dysuria, Urinary Tract Infection, Adult, [id number], Abdominal Pain, Adult, [id number]. - Prescriptions for Pepcid 20 mg Oral Tablet - take 1 tablet by ORAL route every 12 hours for 5 days; 10 tablet. Pyridium 200 mg Oral Tablet - take 1 tablet by ORAL route every 8 hours for 3 days; 9 tablet. Tramadol 50 mg Oral Tablet - take 1 tablet by ORAL route every 8 hours as needed; 12 tablet. - Medication Reconciliation Form, Thank You Letter, Antibiotic Education, Prescription Opioid Use form. - Follow up: Private Physician; When: 2 - 3 days; Reason: If symptoms return, Further diagnostic work-up, Recheck today's complaints, Continuance of care, Re-evaluation by your physician. - Problem is an ongoing problem. - Symptoms have improved. Signatures: Dispatcher [employer] EDNJ Leonidas Bocanegra MD MD kdr Calderon, Audri RN RN aa5 Cindy Park RN RN ca1 Corrections: (The following items were deleted from the chart) 17:11 15:07 03/23/2019 15:07 Discharged to Home. Impression: Dysuria; Abdominal and pelvic aa5 pain. Condition is Stable. Forms are Medication Reconciliation Form, Thank You Letter, Antibiotic Education, Prescription Opioid Use. Follow up: Private Physician; When: 2 - 3 days; Reason: If symptoms return, Further diagnostic work-up, Recheck today's complaints, Continuance of care, Re-evaluation by your physician. Problem is an ongoing problem. Symptoms have improved. kdr
[2019-03-23 18:41] VITALS: BP 152/109; TEMP 97.4; O2SAT 100
== END 2019-03-23 17:11 | disposition home or self-care (01) ==
LOC: ER 11:21
DX: R10.2 Pelvic and perineal pain (principal); I10 Essential (primary) hypertension; E03.9 Hypothyroidism, unspecified; Z88.0 Allergy status to penicillin; Z88.2 Allergy status to sulfonamides; Z88.5 Allergy status to narcotic agent
CPT/HCPCS: 87088; 85025; 87086; 80048; 36415; 80076; 87077; 87186; 81003; 83690; 74177; 51702; 96374; 99284; Q9967; J2405